=== PATIENT | female | born 1990 | race Caucasian/White ===

== ENCOUNTER 2017-03-24 13:23 | Emergency (ER) | payer OTHER ==
[~2017-03-24] VITALS: Ht 165.1 cm; Wt 70.3 kg
[2017-03-24 14:38] LABS: URINE BILIRUBIN NEGATIVE (Negative); URINE BLOOD 1+ (Negative); URINE COLOR YELLOW; URINE GLUCOSE-RANDOM* NEGATIVE (Negative); URINE KETONES NEGATIVE (Negative); URINE NITRITE NEGATIVE (Negative); URINE PROTEIN (DIPSTICK) NEGATIVE (Negative); URINE UROBILINOGEN 0.2 E.U./dl (0.2-1.0)
[2017-03-24 14:52] LABS: SQUAMOUS >10 Many /LPF (0-3)
[2017-03-24 14:53] LABS: CASTS None Seen /LPF (None Seen); CRYSTALS None Seen /LPF (None Seen); URINE WBC 6-15 Few /HPF (0-5)
[2017-03-24 14:54] LABS: URINE RBC 0-2 Rare /HPF (0-2)
[2017-03-24] MEDS ORDERED: MACROBID 100 M100 M1 PO (15:10)
[2017-03-24] MEDS ORDERED: NORCO 5-325 TA1 EACH PO (15:10)
[2017-03-24 15:52] VITALS: BP 131/81
== END 2017-03-24 15:50 | disposition home or self-care (01) ==
LOC: ER 13:23
PROVIDERS: Emergency Medicine
DX: M54.9 Dorsalgia, unspecified (principal); N39.0 Urinary tract infection, site not specified; F10.99 Alcohol use, unspecified with unspecified alcohol-induced disorder